=== PATIENT | male | born 1980 | race African-American/Black ===

== ENCOUNTER 2021-11-21 04:12 | Emergency (ER) | payer OTHER, SELFPAY ==
[2021-11-21] MEDS ORDERED: Boostrix 0.5 ML (Tdap) VIAL ONE (04:47)
[2021-11-21 12:31] LABS: HBSAB Concentration Less than 8.00 mIU/mL; HBSAg Index 0.23 S/CO (0-0.99); HIV (1/2) Antibody/Antigen Non-Reactive (NonReactive); HIV 1/2 INDEX 0.11 S/CO (<1.00); Hep B Core Total Ab Non-Reactive (NonReactive); Hep B Core Total Index 0.17 S/CO (0-0.79); Hep B Surf AB Non-Reactive (NonReactive); Hep B Surf Ag Non-Reactive S/CO (NonReactive); Hep C IgG Ab Non-Reactive (NonReactive); Hep C Index 0.08 S/CO (0-0.79)
== END 2021-11-21 05:52 | disposition home or self-care (01) ==
LOC: MADERS 04:12
DX: S01.411A Laceration without foreign body of right cheek and temporomandibular area, initial encounter (principal); Z23 Encounter for immunization; Y09 Assault by unspecified means
CPT/HCPCS: 12011; 70486; 86704; 86706; 86803; 87340; 87389; 90471; 90715